=== PATIENT | female | born 1970 | race Caucasian/White ===

== ENCOUNTER 2016-06-06 20:01 | Emergency (ER) | payer OTHER ==
[2016-06-06 20:17] LABS: BILIRUBIN NEGATIVE (NEGATIVE); BLOOD 3+ Ery/uL (NEGATIVE); CLARITY CLOUDY (CLEAR); COLOR YELLOW (YELLOW); GLUCOSE (U) NORMAL (NORMAL); KETONE (U) NEGATIVE (NEGATIVE); LEUKOCYTES 1+ Leu/uL (NEGATIVE); NITRITE NEGATIVE (NEGATIVE); PROTEIN 2+ mg/dL (NEGATIVE); SPECIFIC GRAVITY >=1.030 (1.001-1.030); pH 5.5 (5.0-9.0)
[2016-06-06 20:24] LABS: BACTERIA 1+
== END 2016-06-06 21:09 | disposition home or self-care (01) ==
LOC: FER 20:01
PROVIDERS: Emergency Medicine Emergency Medical Services
DX: N39.0 Urinary tract infection, site not specified (principal); F17.210 Nicotine dependence, cigarettes, uncomplicated; Z88.0 Allergy status to penicillin; Z93.2 Ileostomy status
CPT/HCPCS: 81001; 99283

== ENCOUNTER 2020-05-26 00:15 | Emergency (ER) | payer OTHER ==
[2020-05-26] MEDS ORDERED: CYCLOBENZAPRINE10 MG PO (01:52)
[2020-05-26] MEDS ORDERED: ETODOLAC500 MG PO (01:52)
== END 2020-05-26 02:00 | disposition home or self-care (01) ==
LOC: FER 00:15
DX: S16.1XXA Strain of muscle, fascia and tendon at neck level, initial encounter (principal); R51.9 Headache, unspecified; I10 Essential (primary) hypertension; J44.9 Chronic obstructive pulmonary disease, unspecified; Z87.19 Personal history of other diseases of the digestive system; Z93.9 Artificial opening status, unspecified; Z88.0 Allergy status to penicillin; Z88.8 Allergy status to other drugs, medicaments and biological substances; Z79.899 Other long term (current) drug therapy; Y04.2XXA Assault by strike against or bumped into by another person, initial encounter; Y92.009 Unspecified place in unspecified non-institutional (private) residence as the place of occurrence of the external cause; Y07.03 Male partner, perpetrator of maltreatment and neglect
CPT/HCPCS: 72040; J1885

== ENCOUNTER 2021-03-24 17:59 | Emergency (ER) | payer OTHER ==
[~2021-03-24 17:59] MED LIST: CYCLOBENZAPRINE10 MG PO; ETODOLAC500 MG PO
[2021-03-24 18:57] LABS: BASOPHIL 0.6 % (0-2); EOSINOPHIL 0.6 % (0-5); HCT 37.7 % (37.0-47.0); HGB 13.2 g/dl (12.5-16.0); LYMPHOCYTE 9.5 % (15-48); MCH 31.2 pg (25.0-31.0); MCV 89.1 fL (78.0-100.0); MONOCYTE 7.6 % (0-12); MPV 11.3 fL (6.0-9.5); NEUTROPHIL 79.9 % (41-80); NRBC 0; PLT 353 K/uL (150-400); RBC 4.23 M/uL (4.20-5.40); RDW 13.3 % (11.5-14.0); WBC 14.3 K/uL (4.0-10.5)
[2021-03-24 19:27] LABS: ALBUMIN 3.2 g/dL (3.4-5.0); BILIRUBIN - TOTAL 0.4 mg/dL (0.2-1.0); BUN/CREAT RATIO (CALC) 7.5 RATIO; CREATININE 8.56 mg/dL (0.51-0.95); GLOBULIN (CALCULATION) 5.7 g/dL; POTASSIUM 4.5 mmol/L (3.5-5.1); TOTAL PROTEIN 8.9 g/dL (6.4-8.2)
[2021-03-24 19:29] LABS: LACTIC ACID 0.8 mmol/L (0.4-1.9)
[2021-03-24 21:15] LABS: BILIRUBIN NEGATIVE (NEGATIVE); BLOOD 1+ Ery/uL (NEGATIVE); CLARITY CLEAR (CLEAR); COLOR YELLOW (YELLOW); GLUCOSE (U) NORMAL (NORMAL); LEUKOCYTES NEGATIVE Leu/uL (NEGATIVE); NITRITE NEGATIVE (NEGATIVE); PROTEIN 1+ mg/dL (NEGATIVE); SPECIFIC GRAVITY >=1.030 (1.001-1.030); UROBILINOGEN 0.2 mg/dL (0.2-1.0)
[2021-03-24 21:18] LABS: AMORPHOUS URATES CRYSTALS MODERATE; BACTERIA 2+; GRANULAR CASTS MODERATE; MUCOUS LARGE
== END 2021-03-25 03:25 | disposition other institution (70) ==
LOC: FER 17:59
PROVIDERS: Emergency Medicine
DX: K50.90 Crohn's disease, unspecified, without complications (principal); N17.9 Acute kidney failure, unspecified; I10 Essential (primary) hypertension; Z20.822 Contact with and (suspected) exposure to COVID-19; Z88.0 Allergy status to penicillin; Z88.8 Allergy status to other drugs, medicaments and biological substances
CPT/HCPCS: 36415; 71045; 80053; 81001; 83605; 85025; 87040; 87088; 96365; 96375; J1956; J2930; J7030; U0002